=== PATIENT | female | born 1985 | race Caucasian/White ===

== ENCOUNTER → 2021-08-01 | Outpatient (CLI) | payer OTHER | LOC: LAB 14:36 | DX: F11.20 Opioid dependence, uncomplicated (principal) | CPT/HCPCS: 80307 ==

== ENCOUNTER 2021-08-25 13:42 | Emergency (ER) | payer OTHER ==
[2021-08-25 14:54] LABS: HEMOGLOBIN 14.6 gm/dl (12.3-15.3); RED BLOOD COUNT 4.24 M/UL (4.00-5.10); WHITE BLOOD COUNT 9.3 K/UL (4.5-11.0)
[2021-08-25 15:27] LABS: BUN/CREATININE RATIO 13 (0-10)
== END 2021-08-25 17:30 | disposition home or self-care (01) ==
LOC: ER1 13:42
PROVIDERS: Emergency Medicine
DX: R10.9 Unspecified abdominal pain (principal); R19.7 Diarrhea, unspecified; R11.0 Nausea; F17.200 Nicotine dependence, unspecified, uncomplicated; Z90.49 Acquired absence of other specified parts of digestive tract
CPT/HCPCS: 71045; 80053; 81001; 82550; 82553; 83690; 83874; 84484; 84703; 85025; 93005; 96374; 96375; 99284; J1200; J2270; J2405; J2930; J7030; Q9967